=== PATIENT | male | born 1985 | race Caucasian/White ===

== ENCOUNTER 2017-09-14 07:17 | Emergency (ER) | payer MEDICAID, OTHER ==
[~2017-09-14] VITALS: Ht 167.6 cm; Wt 112.8 kg
[2017-09-14 07:21] VITALS: Ht 167.6 cm; Wt 112.8 kg
[2017-09-14] MEDS ORDERED: ONDANSETRON 4 MG INJ IV STA (07:54)
[2017-09-14] MEDS ORDERED: KETOROLAC 30 MG INJ IV STA (07:54)
[2017-09-14] MEDS ORDERED: SOD CHLORIDE 0.9% 1,000 ML IV STA (07:54)
[2017-09-14 08:20] LABS: BASOPHILS % 0.2 % (0.0-2.0); EOSINOPHILS # 0.1 10^3/ul (0.0-0.5); EOSINOPHILS % 0.3 % (0.0-7.0); HEMATOCRIT 44.1 % (42.0-52.0); HEMOGLOBIN 15.4 g/dl (14.0-18.0); LYMPHOCYTES # 2.9 10^3/ul (0.8-2.9); LYMPHOCYTES % 20.1 % (15.0-51.0); MEAN CORPUSCULAR HEMOGLOBIN 28.9 pg (29.0-33.0); MEAN CORPUSCULAR HGB CONC 34.9 g/dl (32.0-37.0); MEAN CORPUSCULAR VOLUME 82.7 fl (82.0-101.0); MEAN PLATELET VOLUME 11.3 fl (7.4-10.4); MONOCYTE # 0.5 10^3/ul (0.3-0.9); MONOCYTES % 3.4 % (0.0-11.0); NEUTROPHILS % 75.2 % (39.0-77.0); PLATELET COUNT 155 10^3/UL (140-415); RED BLOOD COUNT 5.33 10^6/ul (4.70-6.10); RED CELL DISTRIBUTION WIDTH 12.8 % (11.5-14.5); WHITE BLOOD COUNT 14.6 10^3/ul (4.8-10.8)
[2017-09-14] MEDS ORDERED: morphine 4 MG/ML VIAL IV STA (08:31)
[2017-09-14 08:35] LABS: ADD UMIC YES; UR ASCORBIC ACID NEGATIVE (NEGATIVE); UR BACTERIA FEW /HPF (NONE SEEN); UR BILIRUBIN (Dip) NEGATIVE (NEGATIVE); UR BLOOD (Dip) NEGATIVE (NEGATIVE); UR CLARITY CLEAR (CLEAR); UR COLOR YELLOW (YELLOW); UR GLUCOSE (Dip) NEGATIVE (NEGATIVE); UR KETONES (Dip) NEGATIVE (NEGATIVE); UR LEUKOCYTE ESTERASE (Dip) NEGATIVE Leu/ul (NEGATIVE); UR MUCUS MODERATE /HPF (NONE SEEN); UR NITRITE (Dip) NEGATIVE (NEGATIVE); UR RBC 1 /HPF (0-5); UR SPECIFIC GRAVITY (Dip) 1.024 (1.003-1.030); UR TOTAL PROTEIN (Dip) 1+ mg/dl (NEGATIVE); UR UROBILINOGEN (Dip) NEGATIVE (NEGATIVE)
--- NOTE | 2017-09-14 08:45 | RADRPT ---
PROCEDURE: XR Chest. CLINICAL INDICATION: Abdominal pain TECHNIQUE: AP Portable chest. COMPARISON: No pertinent prior examinations were submitted for comparison. FINDINGS: The cardiomediastinal silhouette is magnified. The lung volumes are low with compressive changes and atelectasis. No focal consolidation, pleural effusion or pneumothorax is seen. The osseous struct ures are intact. IMPRESSION: Low lung volumes. No radiographic evidence of acute cardiopulmonary disease. Physician Luca Date Time Electronically viewed and signed by Physician Luca on 09/14/2017 08:45 CS/
--- NOTE | 2017-09-14 08:51 | RADRPT ---
PROCEDURE: CT Abdomen and Pelvis without contrast. CLINICAL INDICATION: Epigastric pain. TECHNIQUE: CT scan of the abdomen and pelvis without contrast was performed on a multidetector hig h-resolution CT scanner. The patient was scanned without intravenous contrast. Coronal and sagittal reformatted images were obtained from the axial source images. Images were reviewed on a high-resol [employer] PACS workstation. The total exam CTDI equals 22.81 mGy and the total exam DLP equals 1462.7 mG y-cm. One or the following dose reduction techniques were used: -Automated exposure control. -Adjustment of the mA and/or KV according to patient's size. -Use of iterative reconstruction technique. DICOM images are available. COMPARISON: None. FINDINGS: Lower thorax: Unremarkable. GI:. Unremarkable. Liver: Liver appears normal in size with a decrease in overall attenuation consistent with steatosis . Gallbladder: There is cholelithiasis without gallbladder wall thickening or biliary tree dilatation. Pancreas: Unremarkable. Spleen: Unremarkablel Adrenals: Unremarkable. Kidneys: There is no evidence of urolithiasis or obstructive uropathy. Bladder: Unremarkable. Pelvic Organs: Unremarkable. Skeleton: Normal for age. Other: N/A IMPRESSION: 1. Cholelithiasis without evidence of gallbladder wall thickening or biliary tree dilatation. 2. Decreased attenuation in the liver parenchyma consistent with diffuse steatosis. 3. Normal appearing appendix visualized. 4. No mass, lymphadenopathy or evidence of an acute inflammatory process. RPTAT: [facility] Physician Carla Date Time Electronically viewed and signed by Physician Carla on 09/14/2017 08:51 /
[2017-09-14 08:57] LABS: ALANINE AMINOTRANSFERASE 36 IU/L (13-69); ALBUMIN 4.5 g/dl (3.3-4.9); ALBUMIN/GLOBULIN RATIO 1.25; ALKALINE PHOSPHATASE 88 IU/L (42-121); ANION GAP 18 (8-16); ASPARTATE AMINO TRANSFERASE 27 IU/L (15-46); BILIRUBIN,INDIRECT 0.4 mg/dl (0-1.1); BILIRUBIN,TOTAL 0.4 mg/dl (0.2-1.3); BLOOD UREA NITROGEN 18 mg/dl (7-20); CALCIUM 9.3 mg/dl (8.4-10.2); CARBON DIOXIDE 25 mmol/L (21-31); CHLORIDE 101 mmol/L (97-110); CREATININE 1.03 mg/dl (0.61-1.24); GLUCOSE 119 mg/dl (70-220); POTASSIUM 4.2 mmol/L (3.5-5.1); SODIUM 140 mmol/L (135-144); TOTAL PROTEIN 8.1 g/dl (6.1-8.1)
[2017-09-14 09:08] LABS: TROPONIN-I < 0.012 ng/ml (0.00-0.12)
--- NOTE | 2017-09-14 09:26 | RADRPT ---
PROCEDURE: Right upper quadrant ultrasound CLINICAL INDICATION: Abdominal pain TECHNIQUE: Multiple real-time images were acquired of the patient's abdomen and right retroperiton eum utilizing a high resolution transducer. COMPARISON: None FINDINGS: The liver is slightly increased in echogenicity and measures 16.3 cm. No focal hepatic masses are s een. The gallbladder is physiologically distended. There are multiple gallstones. There is borderli ne thickening of the gallbladder wall. No pericholecystic fluid is seen. The intra and extrahepatic bile ducts are normal in caliber. The common bile duct measures 4.5 mm. Midline images demonstrate the pancreas head to be normal in echogenicity without obvious inflammato ry change. The body and tail are suboptimally seen Survey views of the right kidney demonstrate no evidence of hydronephrosis or renal calculi. The ri ght kidney measures 12.1 cm. IMPRESSION: 1. Cholelithiasis. There is borderline thickening of the gallbladder wall. No pericholecystic fluid is seen. 2. No biliary duct dilatation. 3. Mild fatty change of the liver. 4. Pancreas suboptimally seen RPTAT: HH .Ward Carter MD, MD Date Time Electronically viewed and signed by .Ward Carter MD, MD on 09/14/2017 09:26 .W/
[2017-09-14] MEDS ORDERED: CIPR500T4 PO (09:41)
[2017-09-14] MEDS ORDERED: HYDR-906 PO (09:41)
[2017-09-14 10:00] VITALS: BP 138/78; PULSE 72; RESP 18; TEMP 98.2
--- NOTE | 2017-09-14 13:53 | ERD ---
ER Documentation Chief Complaint Chief Complaint Complains of chest pain since 0400 am today HPI 31 yr old male complaining of epigastric and chest pain 1 day. Patient denies vomiting. Denies shortness of breath. Does not take medications for symptoms. Has never had this before. Denies coughing or hemoptysis. Denies leg swelling. ROS All systems reviewed and are negative except as per history of present illness. Medications Home Meds Active Scripts Ciprofloxacin Hcl* (Ciprofloxacin Hcl*) 500 Mg Tablet, 500 MG PO BID for 7 Days , #14 TAB Prov:ERNST HIGUERA PA-C 09/14/17 Hydrocodone/Acetaminophen (Diagonal 5-325 Tablet) 1 Each Tablet, 1 TAB PO Q6H Y for PAIN, #7 TAB Prov:ERNST HIGUERA PA-C 09/14/17 Allergies Allergies: Coded Allergies: No Known Allergy (Unverified , 09/14/17) PMhx/Soc Medical and Surgical Hx: pt denies Medical Hx History of Surgery: Yes (Spinal Surg) Anesthesia Reaction: No Hx Neurological Disorder: No Hx Respiratory Disorders: No Hx Cardiac Disorders: No Hx Psychiatric Problems: No Hx Miscellaneous Medical Probl: No Hx Alcohol Use: No Hx Substance Use: No Hx Tobacco Use: No Smoking Status: Never smoker Physical Exam Vitals Vital Signs Date Time Temp Pulse Resp B/P Pulse Ox O2 Delivery O2 Flow Rate FiO2 09/14/17 10:00 98.2 72 18 138/78 100 Room Air 09/14/17 07:21 97.8 68 20 163/88 100 Physical Exam GENERAL: The patient is well-appearing, well-nourished, in no acute distress HEENT: Atraumatic. Conjunctivae are pink. Pupils equal, round, and reactive to light. There is no scleral icterus. Tympanic membranes clear bilaterally. Oropharynx clear. No nystagmus or photophobia. NECK: C-spine is soft and supple. There is no meningismus. There is no cervical lymphadenopathy. CHEST: Clear to auscultation bilaterally. There are no rales, wheezes or rhonchi. HEART: Regular rate and rhythm. No murmurs, clicks, rubs or gallops. No S3 or S4. ABDOMEN: Tender to palpation the right upper quadrant. No rebound tenderness. No abdominal rigidity. No organomegaly. BACK: No midline or flank tenderness. Result Diagram: 09/14/17 0700 09/14/17 0700 Results 24 hrs Laboratory Tests Test 09/14/17 07:00 09/14/17 08:07 White Blood Count 14.610^3/ul Red Blood Count 5.3310^6/ul Hemoglobin 15.4g/dl Hematocrit 44.1% Mean Corpuscular Volume 82.7fl Mean Corpuscular Hemoglobin 28.9pg Mean Corpuscular Hemoglobin Concent 34.9g/dl Red Cell Distribution Width 12.8% Platelet Count 38276^3/UL Mean Platelet Volume 11.3fl Neutrophils % 75.2% Lymphocytes % 20.1% Monocytes % 3.4% Eosinophils % 0.3% Basophils % 0.2% Nucleated Red Blood Cells % 0.0/100WBC Neutrophils # 11.010^3/ul Lymphocytes # 2.910^3/ul Monocytes # 0.510^3/ul Eosinophils # 0.110^3/ul Basophils # 0.010^3/ul Nucleated Red Blood Cells # 0.010^3/ul Sodium Level 140mmol/L Potassium Level 4.2mmol/L Chloride Level 101mmol/L Carbon Dioxide Level 25mmol/L Anion Gap 18 Blood Urea Nitrogen 18mg/dl Creatinine 1.03mg/dl Glucose Level 119mg/dl Calcium Level 9.3mg/dl Total Bilirubin 0.4mg/dl Direct Bilirubin 0.00mg/dl Indirect Bilirubin 0.4mg/dl Aspartate Amino Transf (AST/SGOT) 27IU/L Alanine Aminotransferase (ALT/SGPT) 36IU/L Alkaline Phosphatase 88IU/L Troponin I < 0.012ng/ml Total Protein 8.1g/dl Albumin 4.5g/dl Globulin 3.60g/dl Albumin/Globulin Ratio 1.25 Lipase 177U/L Urine Color YELLOW Urine Clarity CLEAR Urine pH 6.0 Urine Specific [place] 1.024 Urine Ketones NEGATIVEmg/dL Urine Nitrite NEGATIVEmg/dL Urine Bilirubin NEGATIVEmg/dL Urine Urobilinogen NEGATIVEmg/dL Urine Leukocyte Esterase NEGATIVELeu/ul Urine Microscopic RBC 1/HPF Urine Microscopic WBC 1/HPF Urine Bacteria FEW/HPF Urine Mucus MODERATE/HPF Urine Hemoglobin NEGATIVEmg/dL Urine Glucose NEGATIVEmg/dL Urine Total Protein 1+mg/dl Current Medications Medications (Trade) Dose Ordered Sig/Lilli Route PRN Reason Start Time Stop Time Status Last Admin Dose Admin Sodium Chloride (NS) 1,000 ml @ 1,000 mls/hr Q1H STAT IV 09/14/17 07:54 09/14/17 08:53 DC 09/14/17 08:09 Ondansetron HCl (Zofran Inj) 4 mg ONCE STAT IV 09/14/17 07:54 09/14/17 07:56 DC 09/14/17 08:09 Ketorolac Tromethamine (Toradol) 30 mg ONCE STAT IV 09/14/17 07:54 09/14/17 07:56 DC 09/14/17 08:09 Morphine Sulfate (morphine) 4 mg ONCE STAT IV 09/14/17 08:31 09/14/17 08:32 DC 09/14/17 08:38 Procedures/MDM DIAGNOSTIC IMAGING REPORT Patient: JOSUE GIL : 1985 Age: 31 Sex: M MR #: [id number] DOS: 09/14/17822 Ordering MD: BRENDON BROCK PA-C Location: [facility] Room/Bed: PROCEDURE: CT Abdomen and Pelvis without contrast. CLINICAL INDICATION: Epigastric pain. TECHNIQUE: CT scan of the abdomen and pelvis without contrast was performed on a multidetector high-resolution CT scanner. The patient was scanned without intravenous contrast. Coronal and sagittal reformatted images were obtained from the axial source images. Images were reviewed on a high-resolution PACS workstation. The total exam CTDI equals 22.81 mGy and the total exam DLP equals 1462.7 mGy-cm. One or the following dose reduction techniques were used: -Automated exposure control. -Adjustment of the mA and/or KV according to patient's size. -Use of iterative reconstruction technique. DICOM images are available. COMPARISON: None. FINDINGS: Lower thorax: Unremarkable. GI:. Unremarkable. Liver: Liver appears normal in size with a decrease in overall attenuation consistent with steatosis. Gallbladder: There is cholelithiasis without gallbladder wall thickening or biliary tree dilatation. Pancreas: Unremarkable. Spleen: Unremarkablel Adrenals: Unremarkable. Kidneys: There is no evidence of urolithiasis or obstructive uropathy. Bladder: Unremarkable. Pelvic Organs: Unremarkable. Skeleton: Normal for age. Other: N/A IMPRESSION: 1. Cholelithiasis without evidence of gallbladder wall thickening or biliary tree dilatation. 2. Decreased attenuation in the liver parenchyma consistent with diffuse steatosis. 3. Normal appearing appendix visualized. 4. No mass, lymphadenopathy or evidence of an acute inflammatory process. DIAGNOSTIC IMAGING REPORT Patient: JOSUE GIL : 1985 Age: 31 Sex: M MR #: [id number] DOS: 09/14/17 0754 Ordering MD: MADELAINE HIGUERA PA-C Location: [facility] Room/Bed: PROCEDURE: XR Chest. CLINICAL INDICATION: Abdominal pain TECHNIQUE: AP Portable chest. COMPARISON: No pertinent prior examinations were submitted for comparison. FINDINGS: The cardiomediastinal silhouette is magnified. The lung volumes are low with compressive changes and atelectasis. No focal consolidation, pleural effusion or pneumothorax is seen. The osseous structures are intact. IMPRESSION: Low lung volumes. No radiographic evidence of acute cardiopulmonary disease. DIAGNOSTIC IMAGING REPORT Patient: JOSUE GIL : 1985 Age: 31 Sex: M MR #: [id number] DOS: 09/14/17 0000 Ordering MD: MADELAINE HIGUERA PA-C Location: [facility] Room/Bed: PROCEDURE: Right upper quadrant ultrasound CLINICAL INDICATION: Abdominal pain TECHNIQUE: Multiple real-time images were acquired of the patient's abdomen and right retroperitoneum utilizing a high resolution transducer. COMPARISON: None FINDINGS: The liver is slightly increased in echogenicity and measures 16.3 cm. No focal hepatic masses are seen. The gallbladder is physiologically distended. There are multiple gallstones. There is borderline thickening of the gallbladder wall. No pericholecystic fluid is seen. The intra and extrahepatic bile ducts are normal in caliber. The common bile duct measures 4.5 mm. Midline images demonstrate the pancreas head to be normal in echogenicity without obvious inflammatory change. The body and tail are suboptimally seen Survey views of the right kidney demonstrate no evidence of hydronephrosis or renal calculi. The right kidney measures 12.1 cm. IMPRESSION: 1. Cholelithiasis. There is borderline thickening of the gallbladder wall. No pericholecystic fluid is seen. 2. No biliary duct dilatation. 3. Mild fatty change of the liver. 4. Pancreas suboptimally seen ER Course: 1L NS given in ED with Toradol and Morphine. Patient's pain was well controlled with pain medication. Case was discussed with Dr. Jamil prior to discharge. Given patient's pain is well controlled and labs are within normal limits patient will not be admitted for cholecystitis at this time. Patient's symptoms are likely associated with cholelithiasis without cholecystitis. Patient will be discharged with prophylactic antibiotics and strict ER precautions. MDM: 31-year-old male coming in complaining of epigastric pain. Patient has cholelithiasis with borderline thickening to the gallbladder wall. Given pain is well controlled and labs are within normal limits patient will not be admitted at this time. He will be given oral antibiotics and strict ER precautions. Patient's LFTs and lipase are within normal limits. Patient's vital signs are stable. Patient is recommended to follow-up with PMD within 1- 2 days and told to return the ER symptoms change or worsen. All questions answered at discharge. This case was discussed with Dr. Jamil prior to discharge Departure Diagnosis: Primary Impression: Cholelithiasis Condition: Stable Patient Instructions: Gallstones Referrals: [facility] YOU HAVE RECEIVED A MEDICAL SCREENING EXAM AND THE RESULTS INDICATE THAT YOU DO NOT HAVE A CONDITION THAT REQUIRES URGENT TREATMENT IN THE EMERGENCY DEPARTMENT. FURTHER EVALUATION AND TREATMENT OF YOUR CONDITION CAN WAIT UNTIL YOU ARE SEEN IN YOUR DOCTORS OFFICE WITHIN THE NEXT 1-2 DAYS. IT IS YOUR RESPONSIBILITY TO MAKE AN APPOINTMENT FOR FOLOW-UP CARE. IF YOU HAVE A PRIMARY DOCTOR --you should call your primary doctor and schedule an appointment IF YOU DO NOT HAVE A PRIMARY DOCTOR YOU CAN CALL OUR PHYSICIAN REFERRAL HOTLINE AT IF YOU CAN NOT AFFORD TO SEE A PHYSICIAN YOU CAN CHOSE FROM THE FOLLOWING [facility] [address] [facility] [address] [facility] [address] [facility] [address] [facility] [address] [facility]. [address] Additional Instructions: FOLLOW UP WITH YOUR PRIMARY CARE PHYSICIAN TOMORROW.Return to this facility if you are not improving as expected. ERNST HIGUERA PA-C Sep 14, 2017 13:53
== END 2017-09-14 10:00 | disposition home or self-care (01) ==
LOC: FTE 07:17
DX: K80.20 Calculus of gallbladder without cholecystitis without obstruction (principal); K76.0 Fatty (change of) liver, not elsewhere classified
CPT/HCPCS: 36415; 71010; 74176; 76705; 80053; 81001; 83690; 84484; 85025; 93005; 96361; 96374; 96375; J1885; J2270; J2405; J7030; Z7502